=== PATIENT | female | born 1960 | race Caucasian/White ===

== ENCOUNTER 2017-12-23 13:42 | Outpatient (CLI) | payer BC | END 2017-12-23 13:43 | disposition home or self-care (01) | LOC: BICULT 13:42 | PROVIDERS: ATTEND Family Medicine | DX: R94.5 Abnormal results of liver function studies (principal); E06.3 Autoimmune thyroiditis; K76.0 Fatty (change of) liver, not elsewhere classified; K80.20 Calculus of gallbladder without cholecystitis without obstruction; E07.89 Other specified disorders of thyroid | CPT/HCPCS: 76536; 76705 ==

== ENCOUNTER 2019-04-10 06:43 | Outpatient (CLI) | payer BC ==
[2019-04-10 11:22] LABS: #Basophils 0.1 thou/uL (0.0-0.2); #Eosinphils 0.6 thou/uL (0.0-0.7); #Lymphocytes 3.1 thou/uL (1.20-3.40); #Monocytes 0.7 thou/uL (0.11-0.59); #Neutrophils 3.1 thou/uL (1.40-6.50); %Eosinophils 8.2 % (0.0-10.0); %Lymphocytes 40.1 % (21.0-51.0); %Monocytes 9.8 % (0.0-10.0); Hemoglobin 13.7 g/dL (12.0-16.0); Mean Corpuscular HGB CONC 33.3 g/dL (32.0-36.0); Mean Corpuscular Hemoglobin 32.3 pg (27.0-31.0); Mean Corpuscular Volume 96.9 fL (78.0-98.0); Mean Platelet Volume 7.9 fL (7.4-10.4); Platelet Count 291 thou/uL (130-400); RBC Distribution Width 11.7 % (11.5-14.5); Red Blood Cell (RBC) Count 4.24 mill/uL (4.20-5.40); White Blood Cell (WBC) Count 7.6 thou/uL (4.8-10.8)
[2019-04-10 11:44] LABS: Anion Gap 11 mmol/L (10-20); BUN (Urea Nitrogen) 12 mg/dL (9.8-20.1); Calc. Creatinine Clearance 0 mL/min (70-130); Calcium 10.2 mg/dL (7.8-10.44); Carbon Dioxide 25 mmol/L (22-29); Chloride 108 mmol/L (98-107); Estimated GFR-MDRD 83; Glucose 93 mg/dL (70-105); Potassium 4.4 mmol/L (3.5-5.1); Sodium 140 mmol/L (136-145)
== END 2019-04-10 06:44 | disposition home or self-care (01) ==
LOC: LABBT 06:43
PROVIDERS: ATTEND Surgery
DX: Z01.812 Encounter for preprocedural laboratory examination (principal); C50.919 Malignant neoplasm of unspecified site of unspecified female breast
CPT/HCPCS: 80048; 85025

== ENCOUNTER 2019-04-13 07:32 | Day surgery (SDC) | payer BC ==
--- NOTE | 2019-04-13 09:20 | NM ---
NUCLEAR MEDICINE LYMPHOSCINTIGRAPHY: HISTORY: Left breast cancer. Left mastectomy. TECHNIQUE: Patient was administered a total of 0.246 mg of technetium 99m filtered sulfur colloid subcutaneously . Radiotracer was administered at the 12:00, 3:00, 6:00 and 9:00 positions with respect to the nipple. FINDINGS: There is a sentinel lymph node in left axilla. IMPRESSION: [place] lymph node in left axilla. Transcribed Date/Time: 04/13/2019 9:37 AM
[2019-04-13] MEDS ORDERED: PHENYLEPHRINE-NS 100 MCG/ML 10 ML SYRINGE ONE (10:15)
[2019-04-13] MEDS ORDERED: PROPOFOL 200 MG/20 ML VIAL ONE (10:15)
[2019-04-13] MEDS ORDERED: Glycopyrrolate 0.2 MG/ML 5 ML SYRINGE ONE (10:15)
[2019-04-13] MEDS ORDERED: Rocuronium Bromide 10 MG/ML (10ML VIAL) ONE (10:15)
[2019-04-13] MEDS ORDERED: Lidocaine 1% PF 5 ML VIAL ONE (10:15)
[2019-04-13] MEDS ORDERED: Dexamethasone 20 MG/5 ML VIAL ONE (10:15)
[2019-04-13] MEDS ORDERED: Ondansetron PF 4 MG/2 ML Vial ONE (10:15)
[2019-04-13] MEDS ORDERED: Ketorolac Tromethamine 30 MG/ML VIAL ONE (10:15)
[2019-04-13] MEDS ORDERED: Methylene Blue 50 MG/10 ML AMPUL ONE (10:39)
[2019-04-13] MEDS ORDERED: Midazolam HCl 2 mg/2 ml Vial ONE (12:30)
[2019-04-13] MEDS ORDERED: Fentanyl 100 MCG/2 ML VIAL ONE ×2 (12:30→13:42)
[2019-04-13] MEDS ORDERED: Ondansetron HCl/PF 4 MG/2 ML Vial IVP PRN (14:58)
[2019-04-13] MEDS ORDERED: Promethazine HCl 25 MG/ML VIAL SLOW IVP PRN (14:58)
[2019-04-13] MEDS ORDERED: Promethazine HCl 25 MG/ML VIAL IM PRN ×2 (14:58→15:43)
[2019-04-13] MEDS ORDERED: Morphine Sulfate 2 MG/ML SYRINGE SLOW IVP PRN (14:58)
[2019-04-13] MEDS ORDERED: Dextrose 50% Abboject 50 ML SYRINGE SLOW IVP PRN (15:43)
[2019-04-13] MEDS ORDERED: HYDROcodone/Acetaminophen 7.5/325 mg Tablet PO PRN (15:43)
[2019-04-13] MEDS ORDERED: hydrALAZINE 20 MG/ML VIAL SLOW IVP PRN (15:43)
[2019-04-13] MEDS ORDERED: Fentanyl 100 MCG/2 ML VIAL SLOW IVP PRN (15:43)
[2019-04-13] MEDS ORDERED: Ondansetron PF 4 MG/2 ML Vial IVP PRN (15:43)
[2019-04-13] MEDS ORDERED: Dextrose 5% in Water 1,000 ML IV PRN (15:43)
[2019-04-13] MEDS ORDERED: Sodium Chloride 0.9% 1,000 ML IV SCH (15:45)
[2019-04-13] MEDS ORDERED: Promethazine HCl 25 MG/ML VIAL ONE (16:08)
[2019-04-13] MEDS: Famotidine 20 MG TAB PO SCH (19:17)
[2019-04-13] MEDS: Fentanyl 100 MCG/2 ML VIAL SLOW IVP PRN (19:17)
[2019-04-13] MEDS: Docusate 100 MG CAP PO SCH (19:18)
[2019-04-13 19:34] VITALS: BMI 30.9
[2019-04-13] MEDS: HYDROcodone/Acetaminophen 7.5/325 mg Tablet PO PRN (21:58)
--- NOTE | 2019-04-13 22:20 | OP ---
DATE OF PROCEDURE: 04/13/2019 PREOPERATIVE DIAGNOSIS: Left breast cancer, locally invasive, clinical stage T3 N0 Mx. POSTOPERATIVE DIAGNOSIS: Left breast cancer, locally invasive, clinical stage T3 N0 Mx. PROCEDURES PERFORMED: 1. Bilateral mastectomy, nipple sparing. 2. Deep axillary node biopsy, left (sentinel node protocol). ANESTHESIA: General. ESTIMATED BLOOD LOSS: 200 mL. COMPLICATIONS: None. SPECIMENS: 1. Left breast and right breast each marked with 2 short superior and 1 long lateral with blue Prolene suture placed at area of nipple. 2. Left deep axillary sentinel node, touch-prep negative. DESCRIPTION OF PROCEDURE: The patient underwent lymphoscintigraphy on the morning of surgery, which revealed uptake in the left axilla. She had her breast incisions marked by Dr. Miller in his office prior to the hospital. She was taken to the operating room and laid supine on the operating table. After general anesthetic was obtained, her bilateral chest, breast, neck, arms, axilla were prepped and draped in a sterile fashion. An incision was made in the right breast in the inframammary location with the marked out markings that Dr. Miller applied. Flaps were raised to the inferior margin of the breast and the fascia was exposed. The flap was raised on top of the pectoralis major muscle taking the fascia with the specimen all the way up posterior to sternum medially to the latissimus dorsi laterally to near clavicle superiorly. Next, skin flaps were raised all the way up to the same levels. When the nipple skin was taken off the breast, this area of the breast was marked with a Prolene suture. The right breast was removed and marked with 2 short superior, 1 long lateral, and sent to [facility] for final diagnosis. Meticulous hemostasis was obtained and the mastectomy site was irrigated. A 19 round drain brought out through a separate stab incision, sewn in place using silk suture. The breast was closed using interrupted 3-0 Vicryl in the subcutaneous tissues, followed by a running 4-0 Monocryl and Dermabond. Incision was then made on the left. Decision was made not to perform sentinel node deep biopsy until after the mastectomy because the mass overlied the left axilla. Again, flaps were raised superior to the breast after making an incision to inframammary crease, latissimus dorsi, clavicle, and sternum. Flaps were raised on skin as well then all the way to the same landmarks in the area where the nipple skin was taken off the breast. The specimen was marked with a blue Prolene suture. The breast was reflected off and removed. Neoprobe was used in the left axilla to find area of increased uptake and blue node was found and removed with high counts of 200. The background count dropped to near zero. Touch prep on the sentinel node revealed no obvious metastatic malignancy. The left breast cavity was irrigated and meticulous hemostasis was obtained. A 19 round drain brought out through a separate stab incision, sewn to the skin using silk suture. The wound was closed using 3-0 Vicryls interrupted, 4-0 Monocryl and Dermabond. Tegaderms were placed over the drain exit sites. Chaitanya wrap was used to wrap the chest with fluffs on top of the incision. The patient was sent to Recovery in stable condition. All instrument counts, needle counts, and lap counts were correct. Job ID: [id number]
[2019-04-14] MEDS: HYDROcodone/Acetaminophen 7.5/325 mg Tablet PO PRN ×2 (04:23→09:28)
[2019-04-14] MEDS: Fentanyl 100 MCG/2 ML VIAL SLOW IVP PRN ×2 (06:17)
--- NOTE | 2019-04-14 07:41 | PDOC.GSPN ---
Surgery Progress Note: Subj - Subjective Narrative: Ms. Arora is a 58 year old female POD#1 following bilateral mastectomy and left sentinel node biopsy. She is doing well this AM. She notes that she does have occasional pain, mostly on the left side of chest, but it is well managed with [place] and fentanyl. Her NATALIA drains had an output of 50 ml on the right and 90 ml on the left this morning. She is tolerating regular diet well and denies nausea, vomiting. She has not yet had a BM but has been passing gas. She has had no problems voiding and has been ambulating to the restroom on her own. She received education on use of her incentive spirometer. She denies fever, chills. Surgery Progress Note: Obj - Vital signs Vital signs: Vital Signs - Most Recent Temp Pulse Resp BP Pulse Ox 98.7 F 73 16 106/59 L 95 04/14/19 04:48 04/14/19 04:48 04/14/19 04:48 04/14/19 04:48 04/14/19 04:48 - Physical Exam General: no distress Cardiovascular: regular rate and rhythm Respiratory: clear to auscultation Abdomen: soft, non tender, nondistended, positive bowel sounds Wound: dressing clean,dry,intact Surgery Progress Note: A/P - Plan Plan: Ms. Arora is a 58 year old female POD#1 following bilateral mastectomy and left sentinel node biopsy. 1. Pain is well managed. Continue [place] and fentanyl as needed. 2. Tolerating regular diet well with no nausea, vomiting. Continue regular diet. 3. NATALIA drains have output of 50 ml on right, 90 ml on left. Drains to stay in place for this week until follow-up appointment. 4. Encourage ambulation 5. Encourage IS 6. Anticipate discharge home Addendum - Physician - Physician Attestation Date/Time: 04/14/19 [id number] I personally performed or re-performed the physical examination and medical decision making. I have verified all student documentation or findings, including history, physical exam and/or medical decision making. Doing well. flaps viable. dc home with drains. return next week. DC Note Discharge Diagnosis: left breast cancer Stable F/U 1 week. Condition at discharge stable
[2019-04-14 07:46] VITALS: BP 115/56; TEMP 97.6
[2019-04-14] MEDS ORDERED: Thyroid 30 MG TAB PO SCH (09:00)
[2019-04-14] MEDS ORDERED: FLU VACC QS2019-20(6MOS UP)/PF 60 MCG/0.5 ML SYRINGE IM ONE (09:00)
[2019-04-14] MEDS: Docusate 100 MG CAP PO SCH (09:28)
[2019-04-14] MEDS: Famotidine 20 MG TAB PO SCH (09:28)
== END 2019-04-14 13:25 | disposition home or self-care (01) ==
LOC: SDC 07:32 → UNDOADMIN 15:40 → ONC 15:40 → SDC 04-14 13:25 → UNDODISIN 04-14 13:25
PROVIDERS: ATTEND Surgery
DX: C50.412 Malignant neoplasm of upper-outer quadrant of left female breast (principal); N60.21 Fibroadenosis of right breast; N60.11 Diffuse cystic mastopathy of right breast; G43.909 Migraine, unspecified, not intractable, without status migrainosus; Z17.1 Estrogen receptor negative status [ER-]; Z79.899 Other long term (current) drug therapy; Z88.2 Allergy status to sulfonamides
CPT/HCPCS: 78195; 80048; 85025; 88307; 88342; A9541; J0690; J1100; J1885; J2001; J2250; J2405; J2550; J2704; J3010; Q9968

== ENCOUNTER 2019-04-22 05:47 | Day surgery (SDC) | payer BC ==
[2019-04-21 10:39] VITALS: BMI 30.7
[2019-04-22] MEDS ORDERED: Fentanyl 100 MCG/2 ML VIAL ONE (06:35)
[2019-04-22] MEDS ORDERED: Lidocaine 1% w/Epinephrine 1:100K 20 ML VIAL ONE (06:39)
[2019-04-22] MEDS ORDERED: Bupivacaine PF 0.5% 30 ML VIAL ONE (06:39)
[2019-04-22] MEDS ORDERED: Propofol 500 MG/50 ML VIAL ONE ×2 (07:00→07:51)
[2019-04-22] MEDS ORDERED: Midazolam HCl 2 mg/2 ml Vial ONE (07:07)
[2019-04-22] MEDS ORDERED: Scopolamine 1.5 mg/72 hour Patch ONE (07:08)
--- NOTE | 2019-04-22 11:51 | OP ---
DATE OF PROCEDURE: 04/22/2019 PREOPERATIVE DIAGNOSIS: History of breast cancer, status post mastectomy now with ischemic right breast flap. POSTOPERATIVE DIAGNOSIS: History of breast cancer, status post mastectomy now with ischemic right breast flap. PROCEDURE PERFORMED: Revision mastectomy incision. ANESTHESIA: General. SPECIMEN: None. COMPLICATIONS: None. FINDINGS: Ischemic right upper breast flap including nipple technique. DESCRIPTION OF PROCEDURE: The patient was taken to the operating room and laid supine on the operating room table. After general anesthetic was obtained, the bilateral breast and chest were prepped and draped in a sterile fashion. The bilateral drains have been removed. An elliptical incision was used to ellipse out the necrotic area to the right breast including the nipple. The wound was irrigated. A new #19 round drain was brought out through a separate stab incision, sewn in place using 2-0 silk. The wound was closed using 3-0 Vicryl, 4-0 Monocryl, and half-inch Steri-Strips. The MUKESH incisional VAC was placed. The patient was sent to Recovery in stable condition. All instrument counts, needle counts, and lap counts were correct. Job ID: [id number]
== END 2019-04-22 10:00 | disposition home or self-care (01) ==
LOC: SDC 05:47
PROVIDERS: ATTEND Surgery
PROC: 0HBT0ZZ Excision of Right Breast, Open Approach (ICD-10-PCS; principal; 2019-04-22)
DX: L76.82 Other postprocedural complications of skin and subcutaneous tissue (principal); I99.8 Other disorder of circulatory system; Z79.2 Long term (current) use of antibiotics; Z79.899 Other long term (current) drug therapy; Z88.2 Allergy status to sulfonamides; Z85.3 Personal history of malignant neoplasm of breast
CPT/HCPCS: J0690; J2250; J2704; J3010; S0020

== ENCOUNTER 2019-09-25 08:18 | Outpatient (CLI) | payer BC, OTHER ==
[2019-09-26 13:13] LABS: SARS-CoV-2 MS2 Positive; SARS-CoV-2 N Gene Negative; SARS-CoV-2 S Gene Negative; SARS-CoV-2 orf1ab Negative
== END 2019-09-25 08:19 | disposition home or self-care (01) ==
LOC: LABBT 08:18
PROVIDERS: ATTEND Plastic Surgery
DX: Z01.812 Encounter for preprocedural laboratory examination (principal); Z11.59 Encounter for screening for other viral diseases; Z85.3 Personal history of malignant neoplasm of breast
CPT/HCPCS: 87635; U0003

== ENCOUNTER 2019-09-28 07:26 | Day surgery (SDC) | payer BC ==
[2019-09-25 13:41] VITALS: BMI 29.8
[2019-09-28] MEDS ORDERED: Bupivacaine 0.25% HCL 30 ML VIAL ONE (08:04)
[2019-09-28] MEDS ORDERED: EPINEPHrine 1 MG/ML AMP ONE (08:04)
[2019-09-28] MEDS ORDERED: Gentamicin 80 MG/2 ML VIAL ONE ×3 (08:04→10:13)
[2019-09-28] MEDS ORDERED: Sodium Chloride 0.9% 10 ML ONE (08:08)
[2019-09-28] MEDS ORDERED: Midazolam HCl 2 mg/2 ml Vial ONE (08:27)
[2019-09-28] MEDS ORDERED: Fentanyl 100 MCG/2 ML VIAL ONE ×2 (08:27→08:49)
[2019-09-28] MEDS ORDERED: Ondansetron PF 4 MG/2 ML Vial ONE ×3 (08:48→09:41)
[2019-09-28] MEDS ORDERED: Famotidine/PF 20 mg/2ml Vial ONE (08:48)
[2019-09-28] MEDS ORDERED: Heparin 5,000 UNITS/ML VIAL ONE (08:51)
[2019-09-28] MEDS ORDERED: SUGAMMADEX SODIUM 200 MG/2 ML VIAL ONE (09:18)
[2019-09-28] MEDS ORDERED: PHENYLEPHRINE-NS 100 MCG/ML 10 ML SYRINGE ONE (09:41)
[2019-09-28] MEDS ORDERED: Lidocaine 1% PF 5 ML VIAL ONE (09:41)
[2019-09-28] MEDS ORDERED: EPHEDRINE 25 MG/5 ML SYRINGE ONE (09:41)
[2019-09-28] MEDS ORDERED: PROPOFOL 200 MG/20 ML VIAL ONE (09:41)
[2019-09-28] MEDS ORDERED: Ketorolac Tromethamine 30 MG/ML VIAL ONE (09:41)
[2019-09-28] MEDS ORDERED: Ropivacaine 0.5% HCl/PF (150 MG/30 ML VIAL) ONE (09:41)
[2019-09-28] MEDS ORDERED: Metoclopramide HCl 10 MG/2 ML VIAL ONE (09:41)
[2019-09-28] MEDS ORDERED: Dexamethasone 20 MG/5 ML VIAL ONE (09:41)
[2019-09-28] MEDS ORDERED: Ropivacaine 0.2% HCl/PF (40 MG/20 ML VIAL) ONE (09:41)
[2019-09-28] MEDS ORDERED: Rocuronium Bromide 10 MG/ML (10ML VIAL) ONE (09:41)
[2019-09-28] MEDS ORDERED: Zolpidem Tartrate 5 MG TAB PO PRN (10:03)
[2019-09-28] MEDS ORDERED: traMADol HCl 50 MG TAB PO PRN ×2 (10:03)
[2019-09-28] MEDS ORDERED: HYDROcodone/Acetaminophen 10/325 mg Tablet PO PRN ×2 (10:03)
[2019-09-28] MEDS ORDERED: Ondansetron PF 4 MG/2 ML Vial IVP PRN (10:03)
[2019-09-28] MEDS ORDERED: Ropivacaine 0.2% 550 ML 550 ML NERVE BLCK SCH (10:03)
[2019-09-28] MEDS ORDERED: Ketorolac Tromethamine 30 MG/ML VIAL IVP PRN (10:03)
[2019-09-28] MEDS ORDERED: Promethazine HCl 25 MG/ML VIAL IM PRN (10:03)
[2019-09-28] MEDS ORDERED: Acetaminophen 325 MG TAB PO PRN (10:03)
[2019-09-28] MEDS ORDERED: Fentanyl 100 MCG/2 ML VIAL IV PRN (10:05)
[2019-09-28] MEDS ORDERED: HYDROcodone/Acetaminophen 5/325 mg Tablet ONE (14:08)
[2019-09-28] MEDS ORDERED: SODIUM CHLORIDE NERVE BLCK SCH (15:45)
[2019-09-28] MEDS ORDERED: ROPIVACAINE HCL NERVE BLCK SCH (15:45)
--- NOTE | 2019-09-29 09:53 | OP ---
DATE OF PROCEDURE: 09/28/2019 PREOPERATIVE DIAGNOSIS: Breast cancer. POSTOPERATIVE DIAGNOSIS: Breast cancer. OPERATIVE FINDINGS: Right tissue hoseman, [place], reference #[id number], serial #[id number], filled to a volume of 250 mL. Left tissue hoseman, [place], reference #[id number], serial #[id number], filled to a volume of 250 mL. DESCRIPTION OF PROCEDURE: Following induction of adequate anesthesia, the patient was prepped and draped in usual sterile fashion in supine position. Attention was first turned to the left side. An inframammary crease incision was made. Dissection was carried sharply down to the pectoralis fascia. Subsequently, adequate prepectoral pocket was made. The above tissue hoseman was placed and secured with 2-0 Prolene suture at the inferior suture tabs after the pocket had been copiously irrigated with hypochlorite solution followed by dilute Betadine solution, antibiotic solution, and antibiotic bead placement. The pocket was closed with 3-0 PDS suture and 3-0 Monocryl suture prior to accessing the tissue hoseman and filling it to its volume. Similar procedure was done on the contralateral right side. The left side was done first because the right side had an infection with flap loss at the time. Otherwise, the surgery was unremarkable. Job ID: [id number]
== END 2019-09-28 14:20 | disposition home or self-care (01) ==
LOC: SDC 07:26
PROVIDERS: ATTEND Plastic Surgery
PROC: 0HHV0NZ Insertion of Tissue Expander into Bilateral Breast, Open Approach (ICD-10-PCS; principal; 2019-09-28)
DX: C50.919 Malignant neoplasm of unspecified site of unspecified female breast (principal); E07.9 Disorder of thyroid, unspecified; Z88.2 Allergy status to sulfonamides
CPT/HCPCS: A4306; C1713; J0171; J0690; J1100; J1580; J1644; J1885; J2001; J2250; J2405; J2704; J2765; J2795; J3010; J3370; J3490; S0020; S0028

== ENCOUNTER 2020-02-24 07:35 | Outpatient (CLI) | payer BC, OTHER ==
[2020-02-26 11:13] LABS: SARS-CoV-2 MS2 Positive; SARS-CoV-2 N Gene Negative; SARS-CoV-2 S Gene Negative; SARS-CoV-2 by NAA Not Detected (NotDetected); SARS-CoV-2 orf1ab Negative
== END 2020-02-24 07:36 | disposition home or self-care (01) ==
LOC: LABBT 07:35
PROVIDERS: ATTEND Plastic Surgery
DX: Z08 Encounter for follow-up examination after completed treatment for malignant neoplasm (principal); Z85.3 Personal history of malignant neoplasm of breast; Z20.828 Contact with and (suspected) exposure to other viral communicable diseases
CPT/HCPCS: 87635; U0003

== ENCOUNTER 2020-02-29 05:57 | Day surgery (SDC) | payer BC ==
[2020-02-24 13:05] VITALS: BMI 30.7
[2020-02-29] MEDS ORDERED: Heparin 5,000 UNITS/ML VIAL ONE (06:25)
[2020-02-29] MEDS ORDERED: Sodium Chloride 0.9% 20 ML ONE ×2 (06:47→08:10)
[2020-02-29] MEDS ORDERED: Gentamicin 80 MG/2 ML VIAL ONE ×2 (06:47→08:10)
[2020-02-29] MEDS ORDERED: Lidocaine 1% (PF) 30 ML VIAL ONE (06:47)
[2020-02-29] MEDS ORDERED: EPINEPHrine 1 MG/ML AMP ONE (06:47)
[2020-02-29] MEDS ORDERED: Bupivacaine 0.25% HCL 30 ML VIAL ONE ×2 (06:47→06:48)
[2020-02-29] MEDS ORDERED: Fentanyl 250 MCG/5 ML VIAL ONE (06:59)
[2020-02-29] MEDS ORDERED: Phenylephrine 10 MG/ML VIAL ONE (08:10)
[2020-02-29] MEDS ORDERED: Lidocaine 1% PF 5 ML VIAL ONE (10:51)
[2020-02-29] MEDS ORDERED: Dexamethasone 20 MG/5 ML VIAL ONE (10:51)
[2020-02-29] MEDS ORDERED: Ketorolac Tromethamine 30 MG/ML VIAL ONE (10:51)
[2020-02-29] MEDS ORDERED: Metoclopramide HCl 10 MG/2 ML VIAL ONE (10:51)
[2020-02-29] MEDS ORDERED: PROPOFOL 200 MG/20 ML VIAL ONE (10:51)
[2020-02-29] MEDS ORDERED: PHENYLEPHRINE-NS 100 MCG/ML 10 ML SYRINGE ONE (10:51)
[2020-02-29] MEDS ORDERED: Ondansetron PF 4 MG/2 ML Vial ONE (10:51)
[2020-02-29] MEDS ORDERED: EPHEDRINE 25 MG/5 ML SYRINGE ONE ×2 (10:51)
[2020-02-29] MEDS ORDERED: Glycopyrrolate 0.2 MG/ML 5 ML SYRINGE ONE (10:51)
[2020-02-29] MEDS ORDERED: Rocuronium Bromide 10 MG/ML (10ML VIAL) ONE (10:51)
--- NOTE | 2020-03-01 12:58 | OP ---
DATE OF PROCEDURE: 02/29/2020 PREOPERATIVE DIAGNOSIS: Breast cancer. POSTOPERATIVE DIAGNOSIS: Breast cancer. PROCEDURE PERFORMED: 1. Replacement of bilateral tissue horticultural specialty grower field with permanent breast prosthesis including capsular work. 2. Fat grafting of breasts (50 mL), ([id number]). 3. Left breast mastopexy for symmetry (). OPERATIVE FINDINGS: 1. Right breast implant, [place], reference #[id number], serial #[id number]. 650 mL. 2. Left breast implant, [place], reference #[id number], serial #[id number]. 650 mL. DESCRIPTION OF PROCEDURE: Following induction of adequate anesthesia, the patient was prepped and draped in the usual sterile fashion in supine position. Attention was 1st turned to the right breast. The existing inframammary crease scar was incised. Dissection was carried sharply down through the subcutaneous tissue to the underlying capsule, which was incised. The capsule was then opened superiorly and medially. The pocket was copiously irrigated and inspected for meticulous hemostasis prior to placement of the above implant. Attention was turned to the left side. A similar procedure was done except for more extensive capsule work was done on the inferior pole to try to release the tethering that had during the healing process. This involved capsulotomies and dissection of the capsule off the subcutaneous tissue. The pocket was similarly irrigated and closed. Attention was turned to the fat grafting. The abdomen was infiltrated with tumescent fluid. After this had adequate time to take effect, traditional liposuction was done, collecting the fat with a mucus trap. This was then transferred to syringes and allowed to separate before decanting. The fat was then injected into the upper outer quadrant of the left breast as well as the lower inner quadrant of the right using a micro droplet technique. Attention was turned to the right nipple areola, which was ptotic compared to the right side, which skin was very taut. A periareolar lift was achieved by de-epithelializing a donut skin around a 42-mm nipple incision and incontinuity at the proposed location. The 3-0 Ethibond blocking suture was then used with a knot being at the 12 o'clock position. A running 4-0 Monocryl suture was done after that. The patient tolerated the procedure well. Job ID: [id number]
== END 2020-02-29 13:08 | disposition home or self-care (01) ==
LOC: SDC 05:57
PROVIDERS: ATTEND Plastic Surgery
PROC: 0JR607Z Replacement of Chest Subcutaneous Tissue and Fascia with Autologous Tissue Substitute, Open Approach (ICD-10-PCS; principal; 2020-02-29)
PROC: 0HQU0ZZ Repair Left Breast, Open Approach (ICD-10-PCS; principal; 2020-02-29)
PROC: 0HPU0NZ Removal of Tissue Expander from Left Breast, Open Approach (ICD-10-PCS; principal; 2020-02-29)
PROC: 0HPT0NZ Removal of Tissue Expander from Right Breast, Open Approach (ICD-10-PCS; principal; 2020-02-29)
PROC: 0HRV0JZ Replacement of Bilateral Breast with Synthetic Substitute, Open Approach (ICD-10-PCS; principal; 2020-02-29)
DX: C50.919 Malignant neoplasm of unspecified site of unspecified female breast (principal); E07.9 Disorder of thyroid, unspecified; Z79.899 Other long term (current) drug therapy; Z88.2 Allergy status to sulfonamides
CPT/HCPCS: J0171; J0690; J1100; J1580; J1644; J1885; J2001; J2370; J2405; J2704; J2765; J3010; J3370; J3490; S0020

== ENCOUNTER 2021-05-03 12:16 | Outpatient (CLI) | payer BC | END 2021-05-03 12:17 | disposition home or self-care (01) | LOC: BICULT 12:16 | PROVIDERS: ATTEND Surgery | DX: R59.0 Localized enlarged lymph nodes (principal); Z80.3 Family history of malignant neoplasm of breast | CPT/HCPCS: 76999 ==

== ENCOUNTER 2021-05-08 10:39 | Outpatient (CLI) | payer BC | END 2021-05-08 10:40 | disposition home or self-care (01) | LOC: ULT 10:39 | PROVIDERS: ATTEND Surgery | DX: C77.3 Secondary and unspecified malignant neoplasm of axilla and upper limb lymph nodes (principal); Z85.3 Personal history of malignant neoplasm of breast | CPT/HCPCS: 38505; 88305 ==

== ENCOUNTER 2021-05-31 08:11 | Outpatient (CLI) | payer BC | END 2021-05-31 08:12 | disposition home or self-care (01) | LOC: CT 08:11 | PROVIDERS: ATTEND Internal Medicine Hematology & Oncology | DX: C50.412 Malignant neoplasm of upper-outer quadrant of left female breast (principal); M47.816 Spondylosis without myelopathy or radiculopathy, lumbar region; M48.061 Spinal stenosis, lumbar region without neurogenic claudication; M43.16 Spondylolisthesis, lumbar region; N20.0 Calculus of kidney | CPT/HCPCS: 71260; 74177; 78306; A9503 ==

== ENCOUNTER 2021-06-09 15:00 | Outpatient (CLI) | payer BC ==
[2021-06-10 12:54] LABS: SARS-CoV-2 PCR by NAA Not Detected (NotDetected)
== END 2021-06-09 15:01 | disposition home or self-care (01) ==
LOC: LABBT 15:00
PROVIDERS: ATTEND Surgery
DX: Z01.812 Encounter for preprocedural laboratory examination (principal); C50.919 Malignant neoplasm of unspecified site of unspecified female breast; Z20.822 Contact with and (suspected) exposure to COVID-19
CPT/HCPCS: 36415; 80053; 82248; 83615; 84100; 84443; 84550; U0003; U0005

== ENCOUNTER 2021-06-14 09:56 | Day surgery (SDC) | payer BC ==
[2021-06-07 11:55] VITALS: BMI 30.7
[2021-06-14] MEDS ORDERED: Acetaminophen 500 MG TAB ONE (10:43)
[2021-06-14] MEDS ORDERED: Midazolam HCl 2 mg/2 ml Vial ONE (10:49)
[2021-06-14] MEDS ORDERED: Fentanyl 100 MCG/2 ML VIAL ONE (10:49)
[2021-06-14] MEDS ORDERED: Bupivacaine 0.25% HCL 30 ML VIAL ONE (11:46)
[2021-06-14] MEDS ORDERED: Xylocaine 1% w/ Epi 1:100K 10 ML VIAL ONE (11:46)
[2021-06-14] MEDS ORDERED: PROPOFOL 200 MG/20 ML VIAL ONE (11:51)
[2021-06-14] MEDS ORDERED: Dexamethasone 20 MG/5 ML VIAL ONE (11:51)
[2021-06-14] MEDS ORDERED: PHENYLEPHRINE-NS 100 MCG/ML 10 ML SYRINGE ONE (11:51)
[2021-06-14] MEDS ORDERED: Ondansetron PF 4 MG/2 ML Vial ONE (11:51)
[2021-06-14] MEDS ORDERED: Lidocaine 1% PF 5 ML VIAL ONE (11:51)
[2021-06-14] MEDS ORDERED: ceFAZolin 2 GM/Dextrose 50 ML IVPB ONE (11:53)
== END 2021-06-14 14:12 | disposition home or self-care (01) ==
LOC: SDC 09:56
PROVIDERS: ATTEND Surgery
PROC: 02HV33Z Insertion of Infusion Device into Superior Vena Cava, Percutaneous Approach (ICD-10-PCS; principal; 2021-06-14)
PROC: 0JH60WZ Insertion of Totally Implantable Vascular Access Device into Chest Subcutaneous Tissue and Fascia, Open Approach (ICD-10-PCS; principal; 2021-06-14)
DX: C50.912 Malignant neoplasm of unspecified site of left female breast (principal); Z17.1 Estrogen receptor negative status [ER-]; Z79.899 Other long term (current) drug therapy; Z88.2 Allergy status to sulfonamides
CPT/HCPCS: 71045; C1788; J0690; J1100; J1642; J2250; J2405; J2704; J3010; S0020

== ENCOUNTER 2021-11-21 09:54 | Outpatient (CLI) | payer BC ==
[2021-11-21 12:39] LABS: Hemoglobin 12.3 g/dL (12.0-15.5); Mean Corpuscular HGB CONC 34.1 g/dL (32.0-36.0); Mean Corpuscular Hemoglobin 37.8 pg (27.0-33.0); Mean Corpuscular Volume 111.1 fl (81.6-98.3); Mean Platelet Volume 9.9 fl (7.4-10.4); Platelet Count 218 10x3/uL (150-450); RBC Distribution Width 12.9 % (11.5-14.5); Red Blood Cell (RBC) Count 3.25 10x6/uL (3.90-5.03); White Blood Cell (WBC) Count 3.4 10x3/uL (3.5-10.5)
[2021-11-21 12:40] LABS: MDiff Complete? YES
[2021-11-21 12:58] LABS: Anion Gap 16 mmol/L (10-20); BUN (Urea Nitrogen) 9 mg/dL (9.8-20.1); Calc. Creatinine Clearance 0 mL/min (70-130); Calcium 9.2 mg/dL (7.8-10.44); Carbon Dioxide 26 mmol/L (22-29); Chloride 106 mmol/L (98-107); Estimated GFR 99; Glucose 87 mg/dL (70-105); Potassium 4.5 mmol/L (3.5-5.1); Sodium 143 mmol/L (136-145)
[2021-11-21 13:14] LABS: Eosinophils 6 % (0-10); Lymphocytes 33 % (21-51); Monocytes 18 % (0-10); Neutrophil 39 % (42-75)
[2021-11-21 13:15] LABS: Anisocytosis SLIGHT = 6-15 cells (100X) (0-5/hpf); Macrocytosis SLIGHT = 6-15 cells (100X) (0-5/hpf)
[2021-11-21 13:16] LABS: Platelet Morphology Comment Appears Adequate; Small Platelets SLIGHT
== END 2021-11-21 09:55 | disposition home or self-care (01) ==
LOC: LABBT 09:54
PROVIDERS: ATTEND Surgery
DX: Z01.812 Encounter for preprocedural laboratory examination (principal); C77.3 Secondary and unspecified malignant neoplasm of axilla and upper limb lymph nodes; Z20.822 Contact with and (suspected) exposure to COVID-19
CPT/HCPCS: 80048; 85025; 87811

== ENCOUNTER 2021-11-24 09:34 | Day surgery (SDC) | payer BC ==
[2021-11-22 10:18] VITALS: BMI 31.1
[2021-11-24] MEDS ORDERED: Bupivacaine 0.25% HCL 30 ML VIAL ONE (11:03)
[2021-11-24] MEDS ORDERED: Lidocaine 1% w/Epinephrine 1:100K 20 ML VIAL ONE (11:03)
[2021-11-24] MEDS ORDERED: Methylene Blue 50 MG/10 ML AMPUL ONE (11:03)
[2021-11-24] MEDS ORDERED: Scopolamine 1.5 mg/72 hour Patch ONE (11:07)
[2021-11-24] MEDS ORDERED: Sodium Chloride 0.9% 100 ML ONE (11:12)
[2021-11-24] MEDS ORDERED: CEFAZOLIN 2 GM VIAL ONE (11:12)
[2021-11-24] MEDS ORDERED: fentaNYL Citrate/PF 100 MCG/2 ML SYRINGE ONE (11:14)
[2021-11-24] MEDS ORDERED: Dexamethasone 20 MG/5 ML VIAL ONE (11:17)
[2021-11-24] MEDS ORDERED: Lidocaine 1% PF 5 ML VIAL ONE (11:17)
[2021-11-24] MEDS ORDERED: ePHEDrine 50 MG/ML VIAL ONE (11:17)
[2021-11-24] MEDS ORDERED: Ketorolac Tromethamine 30 MG/ML VIAL ONE (11:17)
[2021-11-24] MEDS ORDERED: Ondansetron PF 4 MG/2 ML Vial ONE (11:17)
[2021-11-24] MEDS ORDERED: PHENYLEPHRINE-NS 100 MCG/ML 10 ML SYRINGE ONE (11:17)
[2021-11-24] MEDS ORDERED: PROPOFOL 200 MG/20 ML VIAL ONE (11:17)
[2021-11-24] MEDS ORDERED: Fentanyl 100 MCG/2 ML VIAL ONE (13:19)
== END 2021-11-24 14:58 | disposition home or self-care (01) ==
LOC: SDC 09:34
PROVIDERS: ATTEND Surgery
PROC: 07T60ZZ Resection of Left Axillary Lymphatic, Open Approach (ICD-10-PCS; principal; 2021-11-24)
DX: C50.912 Malignant neoplasm of unspecified site of left female breast (principal); C77.3 Secondary and unspecified malignant neoplasm of axilla and upper limb lymph nodes; Z17.1 Estrogen receptor negative status [ER-]; Z86.16 Personal history of COVID-19; Z79.890 Hormone replacement therapy; Z79.899 Other long term (current) drug therapy; Z88.2 Allergy status to sulfonamides
CPT/HCPCS: 88307; J0690; J1100; J1642; J1885; J2405; J2704; J3010; J3490; Q9968; S0020

== ENCOUNTER 2024-03-31 12:13 | Outpatient (CLI) | payer BC | END 2024-03-31 12:14 | disposition home or self-care (01) | LOC: MRI 12:13 | PROVIDERS: ATTEND Neurological Surgery | DX: M48.061 Spinal stenosis, lumbar region without neurogenic claudication (principal); G95.9 Disease of spinal cord, unspecified; M48.04 Spinal stenosis, thoracic region; C79.51 Secondary malignant neoplasm of bone; R60.9 Edema, unspecified; M47.816 Spondylosis without myelopathy or radiculopathy, lumbar region; M43.16 Spondylolisthesis, lumbar region | CPT/HCPCS: 72157; 72158 ==

== ENCOUNTER 2024-03-31 16:04 | Inpatient (IN) | payer BC ==
[2024-03-31 17:33] LABS: #Basophils Less than 0.03 10x3/uL (0.0-0.2); %Basophils 0.2 % (0.0-1.0); %Eosinophils 1.4 % (0.0-10.0); %Lymphocytes 32.8 % (21.0-51.0); %Monocytes 10.8 % (0.0-10.0); %Neutrophils 54.2 % (42.0-75.0); Hematocrit 41.2 % (36.0-47.0); Hemoglobin 14.2 g/dL (12.0-16.0); Mean Corpuscular HGB CONC 34.5 g/dL (32.0-36.0); Mean Corpuscular Hemoglobin 34.3 pg (27.0-31.0); Mean Corpuscular Volume 99.5 fL (78.0-98.0); Mean Platelet Volume 9.4 fL (7.4-10.4); Platelet Count 261 10x3/uL (130-400); RBC Distribution Width 13.2 % (11.5-14.5); Red Blood Cell (RBC) Count 4.14 mill/uL (4.20-5.40)
[2024-03-31 17:59] LABS: CRP,High Sensitivity (Inhouse) 0.78 mg/dL (< or = 0.5)
[2024-03-31 18:00] LABS: ALT (SGPT) 25 U/L (8-55); AST (SGOT) 19 U/L (5-34); Albumin 3.8 g/dL (3.4-4.8); Alkaline Phosphatase 85 U/L (40-110); Anion Gap 13 mmol/L (10-20); BUN (Urea Nitrogen) 15 mg/dL (9.8-20.1); Bilirubin, Total 0.4 mg/dL (0.2-1.2); Calc. Creatinine Clearance 0 mL/min (70-130); Calcium 9.1 mg/dL (7.8-10.44); Carbon Dioxide 26 mmol/L (23-31); Chloride 104 mmol/L (98-107); Estimated GFR 80; Glucose 122 mg/dL (80-115); Potassium 3.6 mmol/L (3.5-5.1); Protein, Total 6.8 g/dL (5.8-8.1)
[2024-03-31 18:05] LABS: Sodium 139 mmol/L (136-145)
[2024-03-31] MEDS ORDERED: Dexamethasone 10 MG/ML VIAL ONE (18:05)
[2024-03-31] MEDS ORDERED: Ondansetron PF 4 MG/2 ML Vial ONE (18:06)
[2024-03-31] MEDS ORDERED: Morphine 4 MG/ML VIAL ONE (18:06)
[2024-03-31] MEDS ORDERED: Ondansetron PF 4 MG/2 ML Vial IVP PRN (18:45)
[2024-03-31] MEDS ORDERED: Ondansetron ODT 4 MG TAB PO PRN (18:45)
[2024-03-31] MEDS ORDERED: Insulin Lispro 100 UNIT/ML 10 ML VIAL SC PRN (19:02)
[2024-03-31] MEDS ORDERED: Glucagon 1 MG/ML KIT IM PRN (19:02)
[2024-03-31] MEDS ORDERED: Dextrose 5% in Water 1,000 ML IV PRN (19:02)
[2024-03-31] MEDS ORDERED: Dextrose 50% Abboject 50 ML SYRINGE SLOW IVP PRN (19:02)
[2024-03-31 20:24] LABS: Lactic Acid 0.86 mmol/L (0.5-2.2)
[2024-03-31 23:14] VITALS: BMI 33.5
[2024-03-31] MEDS: Dexamethasone 4 mg/ml Vial SLOW IVP SCH (23:15)
[2024-03-31] MEDS: Pantoprazole DR 40 MG TAB PO SCH (23:46)
[2024-03-31] MEDS: Ketorolac Tromethamine 30 MG (1 mL) VIAL IVP PRN (23:47)
[2024-04-01] MEDS ORDERED: tiZANidine HCl 4 MG TAB PO PRN (01:04)
[2024-04-01] MEDS ORDERED: Loratadine 10 MG TAB PO PRN (01:20)
[2024-04-01 04:46] LABS: #Basophils Less than 0.03 10x3/uL (0.0-0.2); #Eosinophils Less than 0.03 10x3/uL (0.0-0.7); %Basophils 0.2 % (0.0-1.0); %Lymphocytes 15.7 % (21.0-51.0); %Monocytes 1.7 % (0.0-10.0); Hematocrit 39.2 % (36.0-47.0); Hemoglobin 13.3 g/dL (12.0-16.0); Mean Corpuscular HGB CONC 33.9 g/dL (32.0-36.0); Mean Corpuscular Hemoglobin 33.3 pg (27.0-31.0); Mean Corpuscular Volume 98.2 fL (78.0-98.0); Mean Platelet Volume 9.5 fL (7.4-10.4); Platelet Count 249 10x3/uL (130-400); RBC Distribution Width 12.8 % (11.5-14.5); Red Blood Cell (RBC) Count 3.99 mill/uL (4.20-5.40)
[2024-04-01 05:10] LABS: ALT (SGPT) 24 U/L (8-55); AST (SGOT) 17 U/L (5-34); Albumin 3.5 g/dL (3.4-4.8); Alkaline Phosphatase 71 U/L (40-110); Anion Gap 14 mmol/L (10-20); BUN (Urea Nitrogen) 13 mg/dL (9.8-20.1); Bilirubin, Total 0.4 mg/dL (0.2-1.2); Calc. Creatinine Clearance 128 mL/min (70-130); Calcium 8.5 mg/dL (7.8-10.44); Carbon Dioxide 23 mmol/L (23-31); Chloride 105 mmol/L (98-107); Estimated GFR 98; Globulin 2.8 g/dL (2.4-3.5); Glucose 141 mg/dL (80-115); Potassium 4.5 mmol/L (3.5-5.1); Protein, Total 6.3 g/dL (5.8-8.1); Sodium 137 mmol/L (136-145)
[2024-04-01] MEDS: Levothyroxine 175 MCG TAB PO SCH (05:49)
[2024-04-01] MEDS: Morphine 2 MG/ML VIAL SLOW IVP PRN (06:44)
[2024-04-01] MEDS: Enoxaparin 40 MG (0.4 mL) SYRINGE SC SCH (10:37)
[2024-04-01] MEDS: valACYclovir 500 MG TAB PO SCH (10:37)
[2024-04-01] MEDS: Pantoprazole DR 40 MG TAB PO SCH (10:38)
[2024-04-01] MEDS: Ketorolac Tromethamine 30 MG (1 mL) VIAL IVP PRN (21:15)
[2024-04-02 04:15] LABS: #Basophils Less than 0.03 10x3/uL (0.0-0.2); #Eosinophils Less than 0.03 10x3/uL (0.0-0.7); %Basophils 0.1 % (0.0-1.0); %Lymphocytes 11.1 % (21.0-51.0); %Monocytes 6.2 % (0.0-10.0); Hematocrit 37.9 % (36.0-47.0); Mean Corpuscular HGB CONC 34.3 g/dL (32.0-36.0); Mean Corpuscular Hemoglobin 34.1 pg (27.0-31.0); Mean Corpuscular Volume 99.5 fL (78.0-98.0); Mean Platelet Volume 9.6 fL (7.4-10.4); Platelet Count 263 10x3/uL (130-400); Red Blood Cell (RBC) Count 3.81 mill/uL (4.20-5.40)
[2024-04-02 04:59] LABS: Anion Gap 15 mmol/L (10-20); BUN (Urea Nitrogen) 17 mg/dL (9.8-20.1); Calc. Creatinine Clearance 130 mL/min (70-130); Calcium 8.7 mg/dL (7.8-10.44); Carbon Dioxide 23 mmol/L (23-31); Chloride 104 mmol/L (98-107); Estimated GFR 99; Glucose 127 mg/dL (80-115); Sodium 138 mmol/L (136-145)
[2024-04-02] MEDS: Acetaminophen 325 MG TAB PO PRN (08:48)
[2024-04-02] MEDS ORDERED: Iopamidol 370 76% 100 ML VIAL ONE (10:41)
[2024-04-03] MEDS: Dexamethasone 4 MG TAB PO SCH (09:54)
[2024-04-03 11:08] VITALS: BP 132/79; TEMP 97.8
== END 2024-04-03 15:29 | disposition home or self-care (01) | DRG 55 ==
LOC: ERS 16:04 → 2SE 18:39 → INTOOBSV 18:39 → OBSVTOIN 18:39
PROVIDERS: ADMIT Internal Medicine; ATTEND Internal Medicine
DX: C79.49 Secondary malignant neoplasm of other parts of nervous system (principal); B02.30 Zoster ocular disease, unspecified; G95.20 Unspecified cord compression; C79.31 Secondary malignant neoplasm of brain; C79.51 Secondary malignant neoplasm of bone; Z88.2 Allergy status to sulfonamides; E03.9 Hypothyroidism, unspecified; Z90.89 Acquired absence of other organs; Z98.51 Tubal ligation status; Z98.890 Other specified postprocedural states; Z85.3 Personal history of malignant neoplasm of breast; Z79.899 Other long term (current) drug therapy
CPT/HCPCS: 36415; 36416; 70553; 71260; 72156; 72157; 72158; 74177; 76376; 77014; 77290; 77333; 80048; 80053; 83605; 84443; 85025; 86141; 96372; 96374; 96375; 96376; G0378; J1100; J1650; J1885; J2272; J2405; J8540; Q9967

== ENCOUNTER 2024-05-29 12:33 | Outpatient (CLI) | payer BC | END 2024-05-29 12:34 | disposition home or self-care (01) | LOC: BICMRI 12:33 → SCSMRI 12:34 | PROVIDERS: ATTEND Radiology Radiation Oncology | DX: C79.49 Secondary malignant neoplasm of other parts of nervous system (principal); C79.51 Secondary malignant neoplasm of bone; M48.061 Spinal stenosis, lumbar region without neurogenic claudication; M48.07 Spinal stenosis, lumbosacral region | CPT/HCPCS: 72157; 72158 ==